=== PATIENT | female | born 1965 | race Caucasian/White ===

== ENCOUNTER → 2019-11-27 | Outpatient (CLI) | payer OTHER | END | disposition home or self-care (01) | LOC: RX STUDY 10:15 | DX: M85.88 Other specified disorders of bone density and structure, other site (principal); N83.299 Other ovarian cyst, unspecified side; Z13.1 Encounter for screening for diabetes mellitus; Z13.21 Encounter for screening for nutritional disorder; Z13.220 Encounter for screening for lipoid disorders; Z13.228 Encounter for screening for other metabolic disorders; Z12.31 Encounter for screening mammogram for malignant neoplasm of breast; B96.81 Helicobacter pylori [H. pylori] as the cause of diseases classified elsewhere ==